=== PATIENT | female | born 2000 | race African-American/Black ===

== ENCOUNTER 2025-07-02 09:01 | Emergency (ER) | payer MEDICAID ==
[~2025-07-02] VITALS: Ht 172.7 cm; Wt 62.0 kg
[2025-07-02 09:11] VITALS: BP 120/73; TEMP 37; O2SAT 100
[2025-07-02 09:12] VITALS: PULSE 87; RESP 18; O2SAT 100
[2025-07-02] MEDS ORDERED: SULF1TAB48 MT (09:57)
[2025-07-02] MEDS ORDERED: ERYT1OIN6 RIGHTEYE (09:57)
== END 2025-07-02 10:06 | disposition home or self-care (01) ==
LOC: ER 09:01
DX: H00.013 Hordeolum externum right eye, unspecified eyelid (principal); Z79.899 Other long term (current) drug therapy
CPT/HCPCS: 99283